=== PATIENT | male | born 1940 | race Caucasian/White ===

== ENCOUNTER → 2018-12-13 | Emergency (ER) | payer OTHER ==
[~2018-12-13] VITALS: Ht 167.6 cm; Wt 81.6 kg
[~2018-12-13] MED LIST: CEFUROXIME500 MG PO
== END | disposition home or self-care (01) ==
LOC: ER 14:43
DX: N39.0 Urinary tract infection, site not specified (principal); B96.29 Other Escherichia coli [E. coli] as the cause of diseases classified elsewhere; R31.0 Gross hematuria

== ENCOUNTER 2020-04-22 08:20 | Emergency (ER) | payer OTHER ==
[~2020-04-22] VITALS: Ht 177.8 cm; Wt 95.3 kg
== END 2020-04-22 11:05 | disposition home or self-care (01) ==
LOC: ER 08:20
DX: S50.02XA Contusion of left elbow, initial encounter (principal); S00.81XA Abrasion of other part of head, initial encounter; S00.31XA Abrasion of nose, initial encounter; W01.198A Fall on same level from slipping, tripping and stumbling with subsequent striking against other object, initial encounter; Y93.89 Activity, other specified; Y92.538 Other ambulatory health services establishments as the place of occurrence of the external cause; Y99.8 Other external cause status

== ENCOUNTER 2020-04-27 16:06 | Outpatient (CLI) | payer OTHER | END 2020-04-27 16:14 | disposition home or self-care (01) | LOC: RAD 16:06 | PROVIDERS: ATTEND Orthopaedic Surgery | DX: M25.522 Pain in left elbow (principal) ==

== ENCOUNTER 2020-04-28 09:37 | Outpatient (CLI) | payer OTHER | END 2020-04-28 09:57 | disposition home or self-care (01) | LOC: TOM 09:37 | PROVIDERS: ATTEND Orthopaedic Surgery | DX: S52.232A Displaced oblique fracture of shaft of left ulna, initial encounter for closed fracture (principal) ==

== ENCOUNTER 2020-07-24 08:58 | Outpatient (CLI) | payer OTHER | END 2020-07-24 09:03 | disposition home or self-care (01) | LOC: LAB 08:58 | PROVIDERS: ATTEND Orthopaedic Surgery | DX: E56.1 Deficiency of vitamin K (principal) ==